=== PATIENT | male | born 1975 | race Caucasian/White ===

== ENCOUNTER 2021-06-26 07:25 | Emergency (ER) | payer OTHER ==
[~2021-06-26 07:25] MED LIST: BACLOFEN 20MG T20 MG PO; MEDROL 4MG DOSEP4 MG PO; MOBIC15 MG PO; NAPROXEN500 MG PO
[2021-06-26 09:00] LABS: BASOPHIL 0.4 % (0-2); EOSINOPHIL 0.3 % (0-5); HCT 54.4 % (42.0-52.0); HGB 18.7 g/dl (13.2-18.0); LYMPHOCYTE 2.1 % (15-48); MCH 32.8 pg (25.0-31.0); MCHC 34.4 g/dL (32.0-36.0); MCV 95.4 fL (78.0-100.0); MONOCYTE 5.7 % (0-12); MPV 9.4 fL (6.0-9.5); NRBC 0; PLT 275 K/uL (150-400); RDW 12.5 % (11.5-14.0); WBC 17.4 K/uL (4.0-10.5)
[2021-06-26 09:03] LABS: NEUTROPHIL 90.9 % (41-80)
[2021-06-26 09:13] LABS: CORONAVIRUS 2019 SARS-COV-2 NEGATIVE (NEGATIVE); INFLUENZA A NAA NEGATIVE (NEGATIVE)
[2021-06-26 09:25] LABS: ALBUMIN 4.9 g/dL (3.4-5.0); ALKALINE PHOSHATASE 96 U/L (46-116); ALT 24 U/L (16-63); AST 23 U/L (15-37); BILIRUBIN - TOTAL 0.7 mg/dL (0.2-1.0); BUN 18 mg/dL (7-18); BUN/CREAT RATIO (CALC) 17.6 RATIO; CHLORIDE 101 mmol/L (98-107); CO2 (BICARBONATE) 27 mmol/L (21-32); CREATININE 1.02 mg/dL (0.67-1.17); GLOBULIN (CALCULATION) 3.7 g/dL; GLUCOSE 167 mg/dL (74-106); LIPASE 92 U/L (73-393); POTASSIUM 4.4 mmol/L (3.5-5.1); TOTAL PROTEIN 8.6 g/dL (6.4-8.2)
[2021-06-26 10:04] LABS: BILIRUBIN 2+ mg/dL (NEGATIVE); BLOOD NEGATIVE Ery/uL (NEGATIVE); CLARITY CLEAR (CLEAR); COLOR YELLOW (YELLOW); GLUCOSE (U) NORMAL (NORMAL); LEUKOCYTES NEGATIVE Leu/uL (NEGATIVE); NITRITE NEGATIVE (NEGATIVE); PROTEIN 2+ mg/dL (NEGATIVE); SPECIFIC GRAVITY >=1.030 (1.001-1.030)
[2021-06-26 10:19] LABS: AMORPHOUS URATES CRYSTALS TRACE; BACTERIA TRACE; GRANULAR CASTS TRACE; MUCOUS MODERATE
[2021-06-26] MEDS ORDERED: ONDANSETRON ODT4 MG PO (12:51)
[2021-06-26] MEDS ORDERED: IMODIUM2 MG PO (12:51)
== END 2021-06-26 13:02 | disposition home or self-care (01) ==
LOC: FER 07:25
PROVIDERS: Emergency Medicine
DX: A08.4 Viral intestinal infection, unspecified (principal); E86.0 Dehydration; F17.210 Nicotine dependence, cigarettes, uncomplicated; Z20.822 Contact with and (suspected) exposure to COVID-19
CPT/HCPCS: 36415; 80053; 81001; 83605; 83690; 83735; 84145; 84484; 85025; J1170; J2405; J7030; Q9967; U0002